=== PATIENT | female | born 2000 | race Caucasian/White ===

== ENCOUNTER → 2022-12-09 | Day surgery (SDC) | payer BC ==
[~2022-12-09] MED LIST: ACETAMINOPHEN 1000 MG/100 ML 100 ML IV ONE; BUPIVACAINE 0.25% 30ML SDV ONE; DEXAMETHASONE SOD PHOS INJ 4 MG/ML SDV ONE; DEXMEDETOMIDINE HCL 2 ML ONE; FENTANYL CITRATE/PF 100MCG/2 ML INJ ONE; GLYCOPYRROLATE INJ 0.2 MG/ML VIAL ONE; KETAMINE HCL INJ 50 MG/ML 10 ML VIAL ONE; LACTATED RINGER'S 1,000 ML ONE; LIDOCAINE HCL 2% LOCAL INJ 5 ML SDV VIAL INJ ONE; MIDAZOLAM HCL 2 MG/2 ML VIAL ONE; MULTI-VITAMIN1 EACH PO; NEOSTIGMINE 1 MG/ML 10ML VIAL ONE; ONDANSETRON HCL INJ 2MG/ML 2ML 2 MG/ML VIAL ONE; OXYMETAZOLINE HCL 0.05% NAS 1 SPRAY BTL ONE; POVIDONE IODINE 0.05% 0.05 % ML PO ONE; PROPOFOL IV EMULSION 10 MG/ML 20 ML VIAL ONE; ROCURONIUM BROMIDE 10 MG/ML 5ML VIAL IV ONE; SEVOFLURANE INHAL SOLN 250 ML PEN BTL ONE; SODIUM CHLORIDE 0.9% INJ 10 ML VIAL ONE
[2022-12-09 08:50] VITALS: BP 110/60
== END | disposition home or self-care (01) ==
LOC: OR 05:38
PROVIDERS: ATTEND Otolaryngology
DX: J35.03 Chronic tonsillitis and adenoiditis (principal)
CPT/HCPCS: 42821; 81025; 88304; J0131; J1100; J2001; J2250; J2405; J2704; J2710; J3010; J7121